=== PATIENT | male | born 1960 | race Caucasian/White ===

== ENCOUNTER 2025-04-28 09:54 | Emergency (ER) | payer BC, OTHER ==
[~2025-04-28] VITALS: Ht 177.8 cm; Wt 89.4 kg
[2025-04-28 10:10] VITALS: PULSE 85; RESP 18; TEMP 98.2; O2SAT 100
[2025-04-28] MEDS ORDERED: PREGABALIN75 MG PO (10:10)
[2025-04-28] MEDS ORDERED: BUPROPION HCL200 MG PO (10:10)
[2025-04-28] MEDS ORDERED: TIZANIDINE HCL4 MG PO (10:10)
[2025-04-28] MEDS ORDERED: AMLODIPINE BESY10 MG PO (10:10)
[2025-04-28] MEDS ORDERED: MODAFINIL200 MG PO (10:10)
[2025-04-28] MEDS ORDERED: TRAZODONE HCL100 MG PO (10:10)
[2025-04-28] MEDS ORDERED: OZEMPIC1 MG/0.71 SQ (10:10)
[2025-04-28] MEDS ORDERED: LOSARTAN POTASS25 MG PO (10:10)
[2025-04-28] MEDS ORDERED: HYDROCODON-ACE1 EAC9 PO (10:10)
[2025-04-28] MEDS ORDERED: ALPRAZOLAM0.25 MG PO (10:10)
[2025-04-28] MEDS ORDERED: PROMETHAZINE HC25 M1 PO (10:10)
[2025-04-28] MEDS ORDERED: TESTOSTERO200 MG/1 M IM (10:11)
[2025-04-28] MEDS: TETANUS/DIPHTHERIA TOX ADULT 0.5 ML SYR IM ONE (10:37)
== END 2025-04-28 11:25 | disposition home or self-care (01) ==
LOC: ER 09:57
DX: S00.03XA Contusion of scalp, initial encounter (principal); W20.8XXA Other cause of strike by thrown, projected or falling object, initial encounter; Y92.89 Other specified places as the place of occurrence of the external cause; I10 Essential (primary) hypertension; F41.9 Anxiety disorder, unspecified; G62.9 Polyneuropathy, unspecified
CPT/HCPCS: 70450; 90471; 90714; 99283